=== PATIENT | female | born 1940 | race Caucasian/White ===

== ENCOUNTER 2016-12-06 08:08 | Inpatient (IN) | payer OTHER, BC ==
[~2016-12-06] VITALS: Ht 167.6 cm; Wt 58.0 kg
[~2016-12-06 08:08] MED LIST: ALTACE2.5 MG PO; ASPIR-LOW81 MG PO; BLUEBERRY EXTRACT PO; CALCIUM 500 MG1 EACH PO; CHAGA PO; DAILY VITE1 EAC1 PO; DONEPEZIL HCL10 MG PO; GLIMEPIRIDE2 MG PO; GLIMEPIRIDE4 MG PO; HORSE TAIL PO; IRON325 M1 PO; KEFLEX500 MG PO; LISINOPRIL2.5 MG PO; LO-DOSE ASPIRIN81 M1 PO; METFORMIN HCL1000 M1 PO; METFORMIN HCL500 MG PO; PANTOPRAZOLE SO40 MG PO; POMEGRANATE250 MG PO; PRAVASTATIN SOD10 MG PO; PRAVASTATIN SOD40 MG PO; PROBIOTIC1 EAC1 PO; SIMVASTATIN20 MG PO; VITAMIN B12 100MCG PO
[2016-12-06 09:08] LABS: HEMATOCRIT 37.5 % (36.0-46.0); MCH 25.6 PG (29.0-34.0); MCHC 30.4 G/DL (30.0-36.0); MCV 84.1 FL (83-99); PLATELET COUNT 55 K/uL (156-360); RBC DIS.WIDTH-CV 18.1 % (11.8-14.6); RBC DIS.WIDTH-SD 53.6 % (39-53); RED BLOOD COUNT 4.46 M/uL (3.80-5.20); WHITE BLOOD COUNT 14.1 K/uL (4.1-10.2)
[2016-12-06 09:14] LABS: ADD MIUA? YES; BILIRUBIN NEGATIVE; BLOOD SMALL; COLOR YELLOW ((YELLOW)); GLUCOSE (STRIP) NEGATIVE; KETONES NEGATIVE; LEUKOCYTES MODERATE; NITRITE NEGATIVE; PROTEIN (STRIP) NEGATIVE; SPECIFIC GRAVITY 1.017 (1.000-1.030); UROBILINOGEN 0.2 MG/DL (0.2-1.0)
[2016-12-06 09:15] LABS: EOSINOPHIL (%) 1.8 % (0-5); EOSINOPHIL COUNT 0.3 K/uL (0-0.3); IMMATURE GRANULOCYTE (%) 0.6 % (0.0-0.7); IMMATURE GRANULOCYTE COUNT 0.8 K/uL; LYMPHOCYTE COUNT 1.4 K/uL (1.0-2.8); MONOCYTE (%) 8.4 % (3-12); MONOCYTE COUNT 1.2 K/uL (0-0.8); NEUTROPHIL (%) 79.1 % (45-76); NEUTROPHIL COUNT 11.2 K/uL (1.8-6.4)
[2016-12-06 09:20] LABS: CHLORIDE 105 mEq/L (99-109); INTER. NORMALIZED RATIO 1.4; POTASSIUM 4.5 mEq/L (3.7-5.4); PROTHROMBIN TIME 14.8 (9.2-11.2); PTT 31.8 (25-32); SODIUM 143 mEq/L (136-147)
[2016-12-06 09:22] LABS: GLUCOSE 68 mg/dL (70-99)
[2016-12-06 09:23] LABS: ANION GAP 11 MEQ/L (2-14)
[2016-12-06 09:26] LABS: GFR ESTIMATE (CALCULATED) 51 mL/min/
[2016-12-06 09:27] LABS: UREA NITROGEN (BUN) 23 mg/dL (9-23)
[2016-12-06 09:31] LABS: TROP-I INTERPRETATION NEGATIVE; TROPONIN-I 0.03 ng/mL (0.0-0.30)
[2016-12-06 09:42] LABS: RED BLOOD CELLS 0-5 /HPF (0-5)
[2016-12-06 09:43] LABS: EPITHELIAL CELLS 2+; MUCUS 2+; WHITE BLOOD CELLS 0-5 /HPF (0-5)
[2016-12-06 09:44] LABS: BACTERIA 1+; CASTS NONE SEEN /LPF; CRYSTALS PRESENT; UCUL ADDED? NO
[2016-12-06 09:45] LABS: AMORPHOUS URATES CRYSTALS 1+
[2016-12-06 15:35] VITALS: BP 122/80
[2016-12-06 17:55] LABS: POINT-OF-CARE METER ID UU14174225
[2016-12-06 19:34] VITALS: BP 125/71
[2016-12-06 23:58] LABS: POINT-OF-CARE METER ID UU14174225
[2016-12-07] VITALS (7 sets, daily range): BP systolic 94–134; BP diastolic 51–74
[2016-12-07 00:18] LABS: POINT-OF-CARE METER ID UU14174225
[2016-12-07 08:11] LABS: POINT-OF-CARE METER ID UU14174225
[2016-12-08 07:50] VITALS: BP 92/57
[2016-12-09] MEDS ORDERED: TYLENOL650 MG PR (13:34)
[2016-12-09] MEDS ORDERED: MORPHINE CON20 MG/M1 PO (13:34)
[2016-12-09] MEDS ORDERED: ATIVAN INTE2 MG/1 ML PO (13:34)
[2016-12-10 07:05] VITALS: BP 111/61
[2016-12-11 10:04] VITALS: BP 92/61
== END 2016-12-12 20:34 | DRG 194 ==
LOC: EME → EDBD 08:08 → EME 08:08 → 5SOUTH 11:18 → EDOF 11:18 → 5SOUTH 14:57 → 5EAST 12-11 17:11
PROVIDERS: Emergency Medicine; Hospitalist; Internal Medicine
DX: J18.9 Pneumonia, unspecified organism (principal); J91.0 Malignant pleural effusion; C78.7 Secondary malignant neoplasm of liver and intrahepatic bile duct; N39.0 Urinary tract infection, site not specified; M48.54XA Collapsed vertebra, not elsewhere classified, thoracic region, initial encounter for fracture; D69.6 Thrombocytopenia, unspecified; I95.9 Hypotension, unspecified; E11.649 Type 2 diabetes mellitus with hypoglycemia without coma; F03.90 Unspecified dementia, unspecified severity, without behavioral disturbance, psychotic disturbance, mood disturbance, and anxiety; I10 Essential (primary) hypertension; Z51.5 Encounter for palliative care; Z66 Do not resuscitate; E78.5 Hyperlipidemia, unspecified; D64.9 Anemia, unspecified; F41.9 Anxiety disorder, unspecified; K80.80 Other cholelithiasis without obstruction; Z87.440 Personal history of urinary (tract) infections; Z85.038 Personal history of other malignant neoplasm of large intestine; H10.9 Unspecified conjunctivitis
CPT/HCPCS: 70450; 71010; 71250; 80048; 81003; 82948; 83605; 84484; 85025; 85610; 85730; 87040; 93005; 94799; 99281; 99285; J1815; J2060; J2270; J2543; J3370; J7050